=== PATIENT | female | born 2000 | race Caucasian/White ===

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

== ENCOUNTER 2020-06-28 07:57 | Outpatient (CLI) | payer BC ==
[2020-06-28 17:13] LABS: SARS-CoV-2 MS2 Positive; SARS-CoV-2 N Gene Negative; SARS-CoV-2 S Gene Negative; SARS-CoV-2 by NAA Not Detected (NotDetected); SARS-CoV-2 orf1ab Negative
== END 2020-06-28 07:58 | disposition home or self-care (01) ==
LOC: LABBT 07:57
PROVIDERS: ATTEND Obstetrics & Gynecology
DX: Z01.812 Encounter for preprocedural laboratory examination (principal); Z20.828 Contact with and (suspected) exposure to other viral communicable diseases
CPT/HCPCS: 87635; U0003

== ENCOUNTER 2020-07-02 19:15 | Inpatient (IN) | payer BC ==
[2020-07-03] MEDS ORDERED: Diphenoxylate HCl/Atropine Tablet PO PRN ×2 (03:50)
[2020-07-03] MEDS ORDERED: Acetaminophen 500 MG TAB PO PRN (03:50)
[2020-07-03] MEDS ORDERED: hydrALAZINE 20 MG/ML VIAL SLOW IVP PRN ×2 (03:50→20:17)
[2020-07-03] MEDS ORDERED: Misoprostol 200 MCG TAB PR PRN (03:50)
[2020-07-03] MEDS ORDERED: NS w/ Oxytocin 10 units 500 ML IV SCH ×2 (03:50)
[2020-07-03] MEDS ORDERED: Docusate 100 MG CAP PO PRN (03:50)
[2020-07-03] MEDS ORDERED: HYDROcodone/Acetaminophen 5/325 mg Tablet PO PRN ×4 (03:50→20:17)
[2020-07-03] MEDS ORDERED: NS / Oxytocin 40 units/1000ml 1,000 ML IV PRN (03:50)
[2020-07-03] MEDS ORDERED: Zolpidem Tartrate 5 MG TAB PO PRN ×2 (03:50→20:17)
[2020-07-03] MEDS ORDERED: Promethazine HCl 25 MG/ML VIAL IM PRN ×2 (03:50→11:57)
[2020-07-03] MEDS ORDERED: Butorphanol Tartrate 1 MG/ML VIAL SLOW IVP PRN (03:50)
[2020-07-03] MEDS ORDERED: Ibuprofen 800 MG TAB PO SCH (03:50)
[2020-07-03] MEDS ORDERED: Lidocaine 1% (PF) 30 ML VIAL SC PRN (03:50)
[2020-07-03] MEDS ORDERED: Ondansetron PF 4 MG/2 ML Vial IVP PRN ×3 (03:50→20:17)
[2020-07-03] MEDS: Lactated Ringer's 1,000 ML IV SCH ×2 (04:02→23:33)
[2020-07-03 04:09] VITALS: BMI 30.2
[2020-07-03] MEDS: Misoprostol 100 MCG TAB VAG SCH ×4 (04:27→23:33)
[2020-07-03 04:33] LABS: Hemoglobin 11.3 g/dL (12.0-16.0); Mean Corpuscular HGB CONC 32.3 g/dL (32.0-36.0); Mean Corpuscular Hemoglobin 29.3 pg (27.0-31.0); Mean Corpuscular Volume 90.6 fL (78.0-98.0); Mean Platelet Volume 8.1 fL (7.4-10.4); Platelet Count 250 thou/uL (130-400); RBC Distribution Width 11.8 % (11.5-14.5); Red Blood Cell (RBC) Count 3.87 mill/uL (4.20-5.40); White Blood Cell (WBC) Count 11.4 thou/uL (4.8-10.8)
[2020-07-03 05:14] LABS: Hep B Surf Ag Non-Reactive S/CO (NonReactive)
[2020-07-03 06:11] LABS: Syphilis Antibody Nonreactive (Nonreactive); Syphilis Antibody Index 0.03 S/CO (<1.00 Non-Reactive)
[2020-07-03] MEDS ORDERED: Bupivacaine 0.5% 20 ML, fentaNYL Citrate/PF 400 MCG in Sodium Chloride 0.9% 72 ML EPIDURAL SCH (11:30)
[2020-07-03] MEDS ORDERED: DISCONTINUE ALL PREVIOUS NARCOTICS FS SCH (11:30)
[2020-07-03] MEDS ORDERED: Acetaminophen 325 MG TAB PO PRN (11:57)
[2020-07-03] MEDS ORDERED: Naloxone HCl 0.4 mg/ml Vial IVP PRN ×2 (11:57)
[2020-07-03] MEDS ORDERED: Lactated Ringer's 500 ML IV PRN (11:57)
[2020-07-03] MEDS ORDERED: diphenhydrAMINE 50 MG/ML VIAL IVP PRN (11:57)
[2020-07-03] MEDS ORDERED: ePHEDrine 50 MG/ML VIAL SLOW IVP PRN (11:57)
[2020-07-03] MEDS ORDERED: Communication Order-Pharmacy FS PRN (12:00)
[2020-07-03] MEDS ORDERED: Fentanyl 4 mcg/Bupivacaine 0.1% Cassette 100 ML EPIDURAL SCH (12:00)
[2020-07-03] MEDS ORDERED: diphenhydrAMINE 25 MG CAP PO PRN (20:17)
[2020-07-03] MEDS ORDERED: Misoprostol 200 MCG TAB VAG PRN (20:17)
[2020-07-03] MEDS ORDERED: Bisacodyl 10 MG SUPP PR PRN (20:17)
[2020-07-03] MEDS ORDERED: Lanolin Ointment 7 GM TUBE TOP PRN (20:17)
[2020-07-03] MEDS ORDERED: Benzocaine-Menthol 82.5 ML CAN TOP PRN (20:17)
[2020-07-03] MEDS ORDERED: Adacel (T-DAP) 0.5 ML SYRINGE IM ONE (20:17)
[2020-07-03] MEDS ORDERED: Milk Of Magnesia 30 ML UDCUP PO PRN (20:17)
[2020-07-03] MEDS ORDERED: Preparation H Ointment 28 GM TUBE PR PRN (20:17)
[2020-07-03] MEDS ORDERED: NS / Oxytocin 40 units/1000ml 1,000 ML IV SCH (20:30)
[2020-07-03] MEDS ORDERED: Sodium Chloride 0.9% 10 ML ONE (23:04)
[2020-07-03] MEDS: Docusate Calcium (SURFAK) 240 MG CAP PO SCH (23:30)
[2020-07-03] MEDS: Ibuprofen 800 MG TAB PO SCH (23:30)
[2020-07-04] MEDS: Ibuprofen 800 MG TAB PO SCH ×3 (05:11→21:00)
[2020-07-04] MEDS: Prenatal Vitamin 1 TAB PO SCH (08:37)
[2020-07-04] MEDS: Docusate Calcium (SURFAK) 240 MG CAP PO SCH ×2 (08:37→20:59)
[2020-07-04] MEDS: Ferrous Sulfate 325 MG TAB PO SCH ×2 (11:06→15:06)
[2020-07-05] MEDS: Ibuprofen 800 MG TAB PO SCH (04:56)
[2020-07-05] MEDS: Ferrous Sulfate 325 MG TAB PO SCH (08:21)
[2020-07-05] MEDS: Docusate Calcium (SURFAK) 240 MG CAP PO SCH (08:25)
[2020-07-05] MEDS: Prenatal Vitamin 1 TAB PO SCH (08:29)
[2020-07-05 09:29] VITALS: BP 129/70; TEMP 98
== END 2020-07-05 12:15 | disposition home or self-care (01) | DRG 807 ==
LOC: L&D 07-03 03:28 → 3SW 07-04 00:09
PROVIDERS: ADMIT Obstetrics & Gynecology; ATTEND Obstetrics & Gynecology
PROC: 10D07Z6 Extraction of Products of Conception, Vacuum, Via Natural or Artificial Opening (ICD-10-PCS; principal; 2020-07-03)
PROC: 10907ZC Drainage of Amniotic Fluid, Therapeutic from Products of Conception, Via Natural or Artificial Opening (ICD-10-PCS; 2020-07-03)
PROC: 3E0P7VZ Introduction of Hormone into Female Reproductive, Via Natural or Artificial Opening (ICD-10-PCS; 2020-07-03)
PROC: 0HQ9XZZ Repair Perineum Skin, External Approach (ICD-10-PCS; 2020-07-03)
PROC: 0W8NXZZ Division of Female Perineum, External Approach (ICD-10-PCS; 2020-07-03)
DX: O48.0 Post-term pregnancy (principal); Z37.0 Single live birth; O70.0 First degree perineal laceration during delivery; Z3A.40 40 weeks gestation of pregnancy
CPT/HCPCS: 36415; 51702; 85027; 86780; 86850; 86900; 86901; 87340; 99285; J2590; J3010; J3490